=== PATIENT | female | born 1985 | race Caucasian/White ===

== ENCOUNTER → 2020-09-08 | Outpatient (CLI) | payer OTHER ==
[~2020-09-08] MED LIST: IBUP600 PO; MULT50L PO; MULTI-VITAMIN1 EACH PO; Percocet 5-3251 EACH PO
== END | disposition home or self-care (01) ==
LOC: LAB SHORT 11:35 → LAB 11:35
DX: R30.0 Dysuria (principal)
CPT/HCPCS: 87086